=== PATIENT | male | born 1950 | race Caucasian/White ===

== ENCOUNTER 2021-08-29 08:51 | Outpatient (REF) | payer MEDICARE, SELFPAY ==
--- NOTE | ~2021-08-29 | XR_ITS ---
EXAMINATION: XR SHOULDER, RIGHT CLINICAL INFORMATION: Pain in the right shoulder. COMPARISON: None TECHNIQUE: Three views of the right shoulder. FINDINGS: Comminuted and displaced fracture of the humeral neck. The humeral head remains well-seated in the glenoid. The acromioclavicular joint is maintained. No other fractures are identified. Limited visualization of the right lung demonstrates no acute abnormalities. XR/XR shoulder RT min 2V IMPRESSION: Comminuted fracture of the right humeral neck.
== END 2021-08-29 08:52 | disposition home or self-care (01) ==
LOC: HO.HMGCX 08:51
PROVIDERS: PCP Internal Medicine; Visit Provider Physician Assistant Medical
DX: M25.511 Pain in right shoulder (principal); S42.291A Other displaced fracture of upper end of right humerus, initial encounter for closed fracture; X58.XXXA Exposure to other specified factors, initial encounter; Y93.9 Activity, unspecified; Y92.9 Unspecified place or not applicable; Y99.8 Other external cause status
CPT/HCPCS: 73030

== ENCOUNTER → 2021-09-04 08:25 | Outpatient (BNVA) | payer MEDICARE, SELFPAY | PROVIDERS: PCP Internal Medicine; Visit Provider Physician Assistant | DX: S42.293A Other displaced fracture of upper end of unspecified humerus, initial encounter for closed fracture (principal) | CPT/HCPCS: 99202 ==

== ENCOUNTER 2021-09-18 08:01 | Outpatient (REF) | payer MEDICARE, SELFPAY ==
--- NOTE | ~2021-09-18 | XR_ITS ---
EXAMINATION: XR SHOULDER, RIGHT CLINICAL INFORMATION: Fracture right proximal humerus. Follow-up. COMPARISON: Radiographs right shoulder 08/29/2021. TECHNIQUE: Frontal and lateral views of the right shoulder are obtained for 2 views. FINDINGS: Comminuted fracture right humeral head and neck is similar to prior exam 08/29/2021. There is no dislocation or destructive process. No significant change in alignment. The acromioclavicular alignment is normal. XR/XR shoulder RT min 2V IMPRESSION: Comminuted fracture proximal right humerus similar to prior exam.
== END 2021-09-18 08:02 | disposition home or self-care (01) ==
LOC: HO.HOSX 08:01
PROVIDERS: Visit Provider Physician Assistant
DX: S42.293D Other displaced fracture of upper end of unspecified humerus, subsequent encounter for fracture with routine healing (principal)
CPT/HCPCS: 73030; 99212

== ENCOUNTER 2021-10-17 07:22 | Outpatient (REF) | payer MEDICARE, SELFPAY ==
--- NOTE | ~2021-10-17 | XR_ITS ---
EXAMINATION: XR SHOULDER, RIGHT CLINICAL INFORMATION: Pain right shoulder COMPARISON: None TECHNIQUE: 2 views of the right shoulder. FINDINGS: There is a comminuted fracture right proximal humerus without dislocation. The AC joint and rest the soft tissues are normal. XR/XR shoulder RT min 2V IMPRESSION: Comminuted fracture right proximal humerus in the head and neck area without dislocation. No change from 09/18/2021.
== END 2021-10-17 07:23 | disposition home or self-care (01) ==
LOC: HO.HOSX 07:22
PROVIDERS: Visit Provider Physician Assistant
DX: S42.291D Other displaced fracture of upper end of right humerus, subsequent encounter for fracture with routine healing (principal); Z87.891 Personal history of nicotine dependence; X58.XXXD Exposure to other specified factors, subsequent encounter
CPT/HCPCS: 73030; 99212

== ENCOUNTER 2021-11-28 08:50 | Outpatient (REF) | payer MEDICARE, SELFPAY ==
--- NOTE | ~2021-11-28 | XR_ITS ---
EXAMINATION: XR SHOULDER, RIGHT CLINICAL INFORMATION: Pain in right shoulder COMPARISON: Prior x-ray most recent 10/17/2021 TECHNIQUE: AP and lateral views of the right shoulder FINDINGS: Comminuted proximal humerus fracture redemonstrated with unchanged appearance and alignment. The remaining bones joints and soft tissues are unremarkable. XR/XR shoulder RT min 2V IMPRESSION: No change in appearance of proximal right humerus fracture
== END 2021-11-28 08:51 | disposition home or self-care (01) ==
LOC: HO.HOSX 08:50
PROVIDERS: Visit Provider Physician Assistant
DX: S42.201D Unspecified fracture of upper end of right humerus, subsequent encounter for fracture with routine healing (principal)
CPT/HCPCS: 73030; 99212

== ENCOUNTER 2022-01-10 08:00 | Outpatient (RCR) | payer MEDICARE, SELFPAY ==
--- NOTE | 2021-09-25 09:48 | MHC.PT.EP ---
[facility] [place] Office [place] Office [place] Office [address] Katheryn Andrade [address] [phone] F: [phone] F: [phone] F: [phone] F: [phone] Physical Therapy Plan of Care Date of Evaluation: Date of Surgery: n/a Diagnosis: Fx of upper end of R humerus Assessment: Patient is a 71 year old male presenting to PT s/p fx of upper end of R humerus. Pt reports onset of pain began 08/23/2021 due to slipping when leaning his arm on ice. He presents today with impairments in pain, AROM, strength, and posture. 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 Pt expresses senior living goal of getting strength and ROM back, and is motivated to work towards this in PT. Clinical presentation today is most consistent with signs and sx associated with fx of upper end of R humerus and pt will benefit from skilled PT to address the following problems and impairments noted upon evaluation: pain, AROM, strength, and posture.. These problems limit the patient with the following functional activities: reaching, lifting, ADLs, and photography. The prescribed treatment plan of care is medically necessary. Co-morbidities of HTN were identified and taken into considerations of plan of care. Pt was educated on HEP, role of PT, prognosis, POC. Frequency and Duration: The patient will be seen 2 x week x 8 weeks Short Term Goals: Pt will demonstrate improved postural awareness by sitting with biomechanically correct posture without cues throughout session to improve overall postural function in 2 weeks. Pt will demonstrate improved PROM to equal B in 3 weeks. Pt will demonstrate improved AROM to equal B in 6 weeks. Pt will demonstrate at least 4/5 MMT R shoulder strength in 6 weeks pending MD clearance for strengthening. Fci Goals: Pt demonstrate 5/5 MMT R shoulder strength in 8 weeks for ability to complete lifting ADLs. Pt will demonstrate ability to complete all reaching ADLs in 8 weeks with min to no pain for return to PLOF. Pt will demonstrate improved SPADI score by 13 points in 8 weeks for improved functional mobility. Treatment Plan: Modalities to reduce pain, spasms and effusion. Manual therapy to restore motion and function. Therapeutic exercise to improve strength and flexibility. Neuromuscular re-education for posture and balance. Therapeutic activities to return to functional activities of daily living. Electronically signed by: Celsa Cerda, PT, DPT, ATC Please sign and return to therapist. Thank you for your referral.
--- NOTE | 2022-01-10 10:14 | MHC.PT.DC ---
[facility] [place] Office [place] Office [place] Office [address] Katheryn Andrade [address] [phone] F: [phone] F: [phone] F: [phone] F: [phone] Physical Therapy Discharge Report Diagnosis: Fx of upper end of R humerus Date of Surgery: n/a Date of Evaluation: 09/25/21 Date of Discharge: 01/10/22 Treatments to Date: 23 Cancellations to Date: 6 No Shows to Date: 0 Discharge Status: Achieved Goals Improved Function Independent with HEP Discharge Summary: Pt has made good progress since beginning skilled PT. He has met all of his goals at this time and is functioning at his PLOF for most activities. He does still have some occasional pain with reaching under his back into IR or across this body although this is slowly improving. Pt is independent and compliant with his HEP and understands the importance of terminal clerk continuation of this. At this time max benefits of PT have been provided and skilled PT is no longer indicated. Pt is in agreement with d/c today. Electronically signed by: Celsa Cerda, PT, DPT, ATC Please sign and return to therapist. Thank you for your referral.
== END 2022-01-10 10:16 | disposition home or self-care (01) ==
LOC: HO.PTCHIC 08:00
PROVIDERS: PCP Internal Medicine; Visit Provider Physician Assistant
DX: S42.201D Unspecified fracture of upper end of right humerus, subsequent encounter for fracture with routine healing (principal)
CPT/HCPCS: 97110; 97140; 97161; 97530